=== PATIENT | female | born 2000 | race Hispanic/Latino ===

== ENCOUNTER 2023-04-16 10:52 | Emergency (ER) | payer SELFPAY ==
[2023-04-16] MEDS ORDERED: Acetaminophen 500 MG TAB ONE (11:40)
[2023-04-16 12:30] LABS: SARS-CoV-2 NAA Rapid Test Not Detected (NotDetected)
== END 2023-04-16 14:00 | disposition home or self-care (01) ==
LOC: ERS 10:52
DX: J10.1 Influenza due to other identified influenza virus with other respiratory manifestations (principal); R11.10 Vomiting, unspecified
CPT/HCPCS: 96360; 96361